=== PATIENT | male | born 1945 | race Caucasian/White ===

== ENCOUNTER 2024-11-14 00:13 | Emergency (ER) | payer MEDICARE, SELFPAY ==
[2024-11-14 00:24] VITALS: BP 157/107; PULSE 85; RESP 16; TEMP 36.8; O2SAT 95; BMI 22.6
--- NOTE | 2024-11-14 01:22 | CT_ITS ---
PROCEDURE: BRAIN/HEAD WITHOUT CONTRAST 11/14/2024 REASON FOR EXAM: ALTERED MENTAL STATUS TECHNIQUE: BRAIN/HEAD WITHOUT CONTRAST Coronal and Sagittal reconstruction series were provided. One or more dose reduction techniques were used (e.g., Automated exposure control, adjustment of the mA and/or kV according to patient size, use of iterative reconstruction technique. RADIATION DOSE SUMMARY: CTDlvol: 45 mGy DLP: 864 mGycm COMPARISON: No FINDINGS: Diffuse atrophy. Arterial calcifications. Mild white matter change. 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 No acute abnormal brain densities. No intracranial hemorrhage. Mildly dilated ventricles likely central atrophy. No midline shift. No acute scalp or skull pathology. Unremarkable orbits. CT/Brain/Head without Contrast IMPRESSION: No acute intracranial findings Reading Location: [place] [id number]
[2024-11-14 01:40] LABS: SITE Not entered; VBG BASE EXCESS 2 mmol/L (-1.0-3.5); VBG PO2 41 mmHg (25-40); VBG SO2 75 % (50-70); VBG TCO2 28 mmol/L (23-33)
[2024-11-14 01:43] VITALS: BP 185/44; PULSE 78; RESP 18
[2024-11-14 01:45] LABS: Squamous Epithelial Cells - UA 0 SEEN /hpf (0-5)
[2024-11-14 01:48] LABS: Hematocrit 42.2 % (40-54); Hemoglobin 14.2 g/dL (13.0-16.5); Immature Granulocytes Count 0.030 X10^3/uL (0.0-0.0); Mean Corp Hgb Conc 33.6 g/dL (32-36); Mean Corpuscular Volume 81.8 fL (80-94); Mean Platelet Vol. 11.5 fl (6.2-12.0); NRBC Flagged by Analyzer 0 % (0-5); Platelet Count 193 K/mm3 (150-450); RBC Distribution Width CV 13.8 % (11.6-14.6); RBC Distribution Width SD 40.6 fl (35.1-43.9); Red Blood Count 5.16 M/mm3 (4.6-6.2); White Blood Count 7.6 K/mm3 (4.4-11.0)
[2024-11-14 02:00] VITALS: BP 151/97; PULSE 80; RESP 16; O2SAT 97
[2024-11-14 02:07] LABS: Color, Urine Yellow (Yellow); Glucose, Dipstick 1000 mg/dl (Normal); Ketone-Dipstick Negative (Negative); Leukocyte Esterase-Dipstick 500 /ul (Negative); Nitrite-Dipstick Negative (Negative); Occult Blood-Urine 250 /ul (Negative); Protein-Dipstick 30 mg/dl (Negative); Specific Gravity, Urine 1.010 (1.002-1.030); Urine Bilirubin Dipstick Negative (Negative)
[2024-11-14 02:34] LABS: BETA-HYDROXYBUTYRATE 0.2 mmol/L (0.0-0.3); Magnesium 1.9 mg/dL (1.5-2.2); Procalcitonin 0.07 ng/mL (<=0.10)
[2024-11-14 02:35] LABS: Barbiturate Urine NEGATIVE (< 200 ng/mL); Benzodiazepine Urine NEGATIVE (< 200 ng/mL); PCP Urine NEGATIVE (< 25 ng/mL); THC Urine NEGATIVE (< 50 ng/mL)
[2024-11-14 02:36] LABS: Acetaminophen (Tylenol) Level < 5.0 ug/mL (8.0-19.0); Alcohol, Blood (Medical)-Serum < 10.1 mg/dL (<=10.0); Ammonia 15.3 umol/L (16-60); Salicylate < 0.5 mg/dL (2.8-20.0)
[2024-11-14 02:36] LABS: Red Blood Cells-Urine 50-100 SEEN /hpf (0-5)
[2024-11-14 02:37] LABS: Mucous, Urine 1+ /hpf (<or=2+)
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
[2024-11-14 02:45] VITALS: BP 160/86; PULSE 76; RESP 18; TEMP 36.7; O2SAT 96
[2024-11-14] MEDS: Smz/Tmp Ds Tablet 1 TABLET PO (02:49)
[2024-11-14 02:54] LABS: AST(SGOT) 31 U/L (<=37); Alanine Aminotransfer ALT/SGPT 35 U/L (<=46); Albumin, Serum 4.0 g/dL (3.4-4.8); Alkaline Phosphatase 151 U/L (40-129); Anion Gap 15 (5-15); BUN 20 mg/dL (4-19); BUN/Creat Ratio 15.0 RATIO (10-20); Bilirubin, Direct 0.13 mg/dL (0.00-0.30); Calcium,Total 9.8 mg/dL (7.6-11.0); Carbon Dioxide 21.7 mmol/L (21.0-32.0); Chloride 88 mmol/L (98-108); Estimated Creatinine Clearance 38.26 ml/min (50-250); Globulin 3.3 g/dL (2.2-4.2); Glucose 939 mg/dL (70-99); Potassium 4.8 mmol/L (3.3-5.1)
[2024-11-14 05:37] LABS: Reflex Lactate? Y
== END 2024-11-14 02:54 | disposition home or self-care (01) ==
LOC: ED 02:49
PROVIDERS: Emergency Provider Emergency Medicine; Visit Provider Emergency Medicine
DX: N39.0 Urinary tract infection, site not specified (principal); F03.90 Unspecified dementia, unspecified severity, without behavioral disturbance, psychotic disturbance, mood disturbance, and anxiety; E11.65 Type 2 diabetes mellitus with hyperglycemia; F05 Delirium due to known physiological condition; B96.5 Pseudomonas (aeruginosa) (mallei) (pseudomallei) as the cause of diseases classified elsewhere
CPT/HCPCS: 70450; 80048; 80076; 80143; 80179; 80307; 81001; 82010; 82077; 82140; 82803; 83605; 83735; 84145; 85025; 87077; 87086; 87088; 87186; 99285